=== PATIENT | male | born 1970 | race African-American/Black ===

== ENCOUNTER 2017-12-19 06:54 | Day surgery (SDC) | payer BC ==
[2017-12-18 08:57] VITALS: BMI 26.6
[~2017-12-19 06:54] MED LIST: Cyclopentolate 1% Opth Drop 2 ML BOT FS SCH; EPINEPHrine 0.3 MG, Dextrose 50% 3 ML in Ophthalmic Irrigation Solution 500 ML FS SCH; Phenylephrine 2.5% Ophth Soln 5 ML BOT FS SCH
[2017-12-19] MEDS ORDERED: Phenylephrine 2.5% Ophth Soln 5 ML BOT ONE (07:16)
[2017-12-19] MEDS ORDERED: Cyclopentolate 1% Opth Drop 2 ML BOT ONE (07:17)
[2017-12-19] MEDS ORDERED: Midazolam HCl 2 mg/2 ml Vial ONE (08:02)
[2017-12-19] MEDS ORDERED: Fentanyl 100 MCG/2 ML VIAL ONE (08:02)
[2017-12-19] MEDS ORDERED: Labetalol HCl 100 MG/20 ML VIAL ONE (08:14)
--- NOTE | 2017-12-19 10:43 | OP ---
DATE OF PROCEDURE: 12/19/2017 PREOPERATIVE DIAGNOSIS: Tractional retinal detachment, left eye. POSTOPERATIVE DIAGNOSIS: Tractional retinal detachment, left eye. PROCEDURE: Pars plana with complex retinal detachment repair, left eye. SURGEON: Dr. Aubrey Serrato ANESTHESIA: Local with monitored anesthesia care. PROCEDURE IN DETAIL: The patient was identified in the preoperative holding area. Appropriate conse nt for planned surgical procedure on the left eye had been obtained. The patient was transported to the operative suite. Appropriate cardiopulmonary monitoring established. Local anesthesia obtained using retrobulbar and modified Van Lint lid block using 50:50 mixture of 4% lidocaine, 0.75% bupivaca ine. The patient was prepped and draped in the usual sterile manner for ophthalmic surgery on the le ft eye. Lid speculum was placed in the left eye. The 25-gauge trocars placed through the conjunctiv a and sclera supratemporally, inferotemporally, and supranasally. Infusion line was placed inferotem porally. Core vitrectomy was performed. The retina was noted to be completely detached with the fun isis component and a tight circling band of scar tissue around the arcades. This was peeled off the retina. The circling band was peeled off the retina with rigid adherence supratemporally where it wa s trimmed. Holes were noted superiorly and nasally. Complete air fluid exchange was performed with 10 minutes being allowed for fluid to drain posteriorly. Extensive dissection of epiretinal membrane s was performed. Significant flattening of the retina. Shepherd retinal photocoagulation was placed into all non-macular areas of the retina. Silicone oil was infused into the eye. Trocars were removed. Sclerotomies were closed with 7-0 Vicryl suture. Conjunctiva was closed with 6-0 plain gut suture. Retrobulbar Kenalog and subconjunctival Ancef were placed. Atropine and antibiotic ointment were pl aced, and the eye was patched and shielded. The patient was taken the postoperative recovery unit in good condition having suffered no immediate perioperative complications. DISCHARGE INSTRUCTIONS: The patient was instructed to keep patch and shield on, avoid lifting or luanne ding, avoid flat on back positioning, and follow up in the morning with Dr. Serrato.
[2017-12-19] MEDS ORDERED: Lidocaine 4% PF 5 ML AMP ONE (14:44)
[2017-12-19] MEDS ORDERED: Lidocaine 1% PF 5 ML VIAL ONE (14:44)
[2017-12-19] MEDS ORDERED: CEFAZOLIN 1 GM VIAL ONE (14:44)
[2017-12-19] MEDS ORDERED: Bupivacaine 0.75% 10 ML AMP ONE (14:44)
[2017-12-19] MEDS ORDERED: Maxitrol 0.1% Opth Oint 3.5 GM TUBE ONE (14:44)
[2017-12-19] MEDS ORDERED: PROPOFOL 200 MG/20 ML VIAL ONE (14:44)
[2017-12-19] MEDS ORDERED: Triamcinolone 40 MG/ML VIAL ONE (14:44)
[2017-12-19] MEDS ORDERED: Labetalol 100 MG/20 ML MDV ONE (14:44)
== END 2017-12-19 10:55 | disposition home or self-care (01) ==
LOC: SDC 06:54
PROVIDERS: ATTEND Ophthalmology Retina Specialist
PROC: 08T53ZZ Resection of Left Vitreous, Percutaneous Approach (ICD-10-PCS; principal; 2017-12-19)
PROC: 08NF3ZZ Release Left Retina, Percutaneous Approach (ICD-10-PCS; principal; 2017-12-19)
DX: H33.42 Traction detachment of retina, left eye (principal); E11.9 Type 2 diabetes mellitus without complications
CPT/HCPCS: 93005; 93010; C1814; J0171; J0690; J2001; J2250; J2704; J3010; J3301; J3490